=== PATIENT | male | born 1950 | race African-American/Black ===

== ENCOUNTER 2016-07-19 10:52 | Inpatient (IN) | payer OTHER, BC ==
[~2016-07-19] VITALS: Ht 175.3 cm; Wt 79.2 kg
--- NOTE | ~2016-07-19 | HC ---
[facility] [address] [place] [address] CONSULTATION Name: VALARIE RIBEIRO Room #: 441-P [facility] IN M.R.#: [id number] Admission: 07/19/16 Attend Phys: Martha Vazquez Discharge: 07/21/16 Date of : 54 Report #: [id number] THIS REPORT FOR: //name// CC: [facility] DATE OF SERVICE: 07/20/2016 REASON FOR CONSULTATION: End-stage renal disease in a patient on chronic peritoneal dialysis. HISTORY OF PRESENT ILLNESS: This is a 66-year-old male with end-stage renal disease. He has been on dialysis for years and for a long period of time, was on hemodialysis. He was having progressive problems with his peripheral dialysis access requiring numerous interventions. He requested to change to peritoneal dialysis and that process was started about 6 months ago. It has been interrupted by several admissions to other facilities. Nevertheless, he has been on home nocturnal cyclic peritoneal dialysis. Yesterday, he was actually driving into the peritoneal dialysis clinic to turn in some peritoneal samples for adequacy testing and he was pulled over by the local police department because he was swerving. He was brought to the Emergency Room. He remembers being weak. He knew he was swerving. No described loss of consciousness. When he first arrived, his blood pressure was 99/62, his heart rate was 92 at that time. He was oxygenating well. Labs in the Emergency Room showed a potassium of 2.8 as being the only real abnormality. Other electrolytes were normal. Bicarbonate was 29, BUN 40, creatinine 12.3, calcium 10.5, hemoglobin 12.1, hematocrit 37.0, white count 10.6. He was admitted to the hospital. He has had a CT scan of the head done and review of that shows mild to moderate atrophy with some white matter changes. No severe focal defects, nothing to account for his presentation. This morning, he had an MRI that was ordered by the hospital. It similarly shows no acute process, minimal white matter changes, but no severe changes otherwise. In talking to the patient, he knows he has been weak. He has had several falls recently. He has occasional dizziness when arising and that is not a new finding for him. He says he is particularly weak when he gets up in the morning. Reviewing his dialysis prescription, he has been doing peritoneal dialysis using all 2.5% dextrose dialysate, that is actually less concentrated than he had been on previously for exactly the same reason. He had been getting hypotensive and on the dry side when he was using a higher concentration. He says he felt better when he switched to the 2.5%. He thinks his weight is down though. Appetite is poor. He denies nausea or vomiting. He has had recent problems with some esophageal reflux symptoms. With that, he got put on some omeprazole and said that was feeling much better. He lives alone and I think this is also part of the problem. He makes his own food, but that has been somewhat irregular. [address] [address] CONSULTATION Name: VALARIE RIBEIRO Room #: 441-P [facility] IN M.R.#: [id number] Admission: 07/19/16 Attend Phys: Martha Vazquez Discharge: 07/21/16 Date of : 54 Report #: [id number] PAST MEDICAL HISTORY: End-stage renal disease. This was due to diabetes. He has been on dialysis for many years, but recently switched from hemo to peritoneal dialysis. He has peripheral vascular disease. In the last 4 or 5 months, he had an ischemic/infected toe and had the right great toe amputated at [facility]. He has had multiple surgeries and intervention related to his hemodialysis access. MEDICATIONS: Based upon his recall and the peritoneal dialysis office include Lantus 16 units daily, NovoLog 3 units with meals, PhosLo 667 mg 3 p.o. t.i.d. with meals, Nephrocaps 1 daily, p.r.n., calcitriol 0.25 mcg twice weekly, aspirin 81 mg daily. He takes p.r.n., hydroxyzine for itching and p.r.n. alprazolam. He has also been on omeprazole daily for the past few weeks. FAMILY HISTORY: Noncontributory. SOCIAL HISTORY: The patient lives alone. This has been somewhat of his difficulty as he does not have much help at home. He does all his own meals, all his own peritoneal dialysis and all his own self-care. REVIEW OF SYSTEMS: Basically as noted above. He is unaware of fevers, chills or sweats, although he states he feels cold much of the time. He has gotten weaker and noted some difficulty with ambulation. He has fallen a couple of times at home. No nausea, vomiting or diarrhea. He says that reflux pain is better since he got put on the omeprazole. No palpitations or chest pressure. No dyspnea. He says he has been sleepy more than normal, but has been doing his peritoneal dialysis overnight. PHYSICAL EXAMINATION: GENERAL: A very pleasant 66-year-old male, awake, alert and responsive at this time. I have known this gentleman for years and he looks fairly near his normal self. VITAL SIGNS: Blood pressure 104/65, heart rate 75, respiratory rate 20, temperature 96.4. HEENT: Shows pupils are equal and reactive. Sclerae nonicteric. Oral mucosa is negative. NECK: Shows no JVD. CHEST: Clear bilaterally. HEART: Has a regular rate and rhythm. ABDOMEN: Has active bowel sounds, is nontender. Peritoneal catheter is intact. EXTREMITIES: Show trace bilateral lower extremity edema. Left upper arm AV graft still has pulsatile function. NEUROLOGIC: Cranial nerves are intact. He has no focal or lateralizing signs. When I do try to walk him, he is weak centrally with mild ataxia. CT and MRI as noted above. [facility] [address] [place] [address] CONSULTATION Name: VALARIE RIBEIRO Room #: 441-P [facility] IN M.R.#: [id number] Admission: 07/19/16 Attend Phys: Martha Vazquez Discharge: 07/21/16 Date of : 54 Report #: [id number] LABORATORY DATA: Sodium 145, potassium 3.2, chloride 107, bicarbonate 27, BUN 45, creatinine 12.4, glucose 281, calcium 9.2, phosphorus down to 3.8, albumin 1.7. White count 10.6, hemoglobin 12.1, hematocrit 37.0, platelets 93,000. ASSESSMENT AND PLAN: 1. End-stage renal disease, on peritoneal dialysis. We will run dialysis tonight and I will put him only on 1.5% dextrose. He may gain a little bit of volume with that, but at this point, he needs a bit of volume and some blood pressure. At home, I think we can run him on half 1.5% and half 2.5% dextrose. We will continue on his same prescription otherwise. That has been reviewed with Dr. Jain of the peritoneal service and also with the peritoneal dialysis nurse as well as the patient. 2. Hypokalemia. This is largely due to low oral intake. I will put him on some oral potassium twice daily. 3. Weakness, which is significant, although he is still functional. He needs physical therapy in the home setting. He needs to work with ambulation and strengthening. I have talked with the cyanide case hardener and also with Dr. Vazquez about that. 4. Longstanding diabetes. Continue current medications. 5. Anemia, mild, not on any erythropoietin at this time as his hemoglobin is holding well. 6. Recent to amputations, stable. <ELECTRONICALLY SIGNED> By: Sheldon Alfaro MD 07/23/16 0725 [id number] Sheldon Alfaro MD /nt
[2016-07-19 10:53] VITALS: BP 99/62
[2016-07-19] MEDS ORDERED: NOVOLOG100 UNIT/1 SUBQ (11:05)
[2016-07-19] MEDS ORDERED: LANTUS100 UNIT/M SUBQ (11:05)
[2016-07-19 11:16] LABS: HEMOGLOBIN 12.1 gm/dL (14.0-18.0); MCH 27.2 pg (26.0-34.0); MCHC 32.8 g/dL (28.0-37.0); MCV 82.9 fL (80.0-100.0); RBC 4.46 mil/uL (4.50-6.00); RDW 22.1 % (10.5-14.5); WBC 10.6 thou/uL (4.0-11.0)
[2016-07-19 11:19] LABS: MANUAL DIFF YES
[2016-07-19 11:25] LABS: CALCIUM 10.5 mg/dL (8.5-10.1); CREATININE 12.3 mg/dL (0.7-1.3)
[2016-07-19 11:27] LABS: POTASSIUM 2.8 mmol/L (3.5-5.1)
[2016-07-19 12:00] LABS: ABSOLUTE NEUTROPHILS 8.9 thou/uL (1.4-8.2); PLATELET COUNT 93 thou/uL (150-400); PLATELET ESTIMATE DECREASED; TOTAL CELL COUNT 100
[2016-07-19 12:01] LABS: ANISOCYTOSIS 1+; POLYCHROMASIA SLIGHT
[2016-07-19 15:30] VITALS: BP 110/59
[2016-07-19 19:44] LABS: CALCIUM 10.4 mg/dL (8.5-10.1); CREATININE 12.2 mg/dL (0.7-1.3); POTASSIUM 3.2 mmol/L (3.5-5.1)
[2016-07-19 19:49] LABS: ALBUMIN 2.2 g/dL (3.4-5.0); TOTAL BILIRUBIN 0.3 mg/dL (<0.1-1.0); TOTAL PROTEIN 6.3 g/dL (6.4-8.2)
[2016-07-19 20:50] VITALS: BP 107/63
[2016-07-20 04:46] VITALS: BP 93/56
[2016-07-20 05:03] LABS: ALBUMIN 1.7 g/dL (3.4-5.0); CALCIUM 9.2 mg/dL (8.5-10.1); CREATININE 12.4 mg/dL (0.7-1.3); PHOSPHORUS 3.8 mg/dL (2.5-4.9); POTASSIUM 3.2 mmol/L (3.5-5.1)
[2016-07-20 08:00] VITALS: BP 104/65
[2016-07-20 08:07] VITALS: BP 99/62
[2016-07-20 10:21] LABS: CHOLESTEROL 92 mg/dL (<200); HDL CHOLESTEROL 49 mg/dL (>40); LDL CHOLESTEROL 35 mg/dL (<100); TC:HDL 1.9 Ratio (Not establshd); TRIGLYCERIDE 42 mg/dL (<150); VLDL 8 mg/dL (<40)
[2016-07-20] MEDS ORDERED: ASPIRIN325 PO (12:06)
[2016-07-20 16:38] VITALS: BP 120/60
[2016-07-20 17:05] VITALS: BP 120/60
[2016-07-20 20:12] VITALS: BP 119/62
[2016-07-21 04:19] LABS: ALBUMIN 1.7 g/dL (3.4-5.0); CALCIUM 9.5 mg/dL (8.5-10.1); CREATININE 12.2 mg/dL (0.7-1.3); PHOSPHORUS 3.5 mg/dL (2.5-4.9); POTASSIUM 3.5 mmol/L (3.5-5.1)
[2016-07-21 04:41] VITALS: BP 98/65
[2016-07-21 08:00] VITALS: BP 133/60
[2016-07-21] MEDS ORDERED: K-DUR 20 MEQ T20 MEQ PO (10:35)
[2016-07-21 10:54] VITALS: BP 120/60
== END 2016-07-21 12:40 | disposition home health service (06) | DRG 70 ==
LOC: ER 10:52 → EROBS 14:18 → 4S 14:18
PROVIDERS: Emergency Medicine; Hospitalist; Internal Medicine Nephrology
PROC: 3E1M39Z Irrigation of Peritoneal Cavity using Dialysate, Percutaneous Approach (ICD-10-PCS; principal; 2016-07-20)
DX: G93.41 Metabolic encephalopathy (principal); N18.6 End stage renal disease; E87.6 Hypokalemia; E11.51 Type 2 diabetes mellitus with diabetic peripheral angiopathy without gangrene; Z60.2 Problems related to living alone; D64.9 Anemia, unspecified; Z89.421 Acquired absence of other right toe(s); Z99.2 Dependence on renal dialysis
CPT/HCPCS: 10100; 33000